=== PATIENT | female | born 1940 | race Caucasian/White ===

== ENCOUNTER → 2017-08-12 | Outpatient (CLI) | payer MEDICARE, OTHER ==
--- NOTE | 2017-08-12 10:14 | CARDIOVASCULAR REPORT ---
"Cerebrovascular Exam Indications: Follow-up carotid 433.10. IMPRESSIONS 1. Study suggests 50-69% stenosis involving the right internal carotid artery. Disease progression from the study of 23-Feb-2010. 2. Study suggests 50-69% stenosis involving the left internal carotid artery. No change from the study of 23-Feb-2010. History: Risk factors: Current tobacco use. Carotid duplex study. Complete study and Doppler flow study including spectral analysis, color and cabrera scale imaging. Height: Height: 154.9cm. Height: 61in. Weight: Weight: 68kg. Weight: 149.7lb. Body mass index: BMI: 28.3kg/m^2. Body surface area: BSA: 1.73m^2. Location: Vascular laboratory. Patient status: Outpatient. Tables: Arterial flow: + +--------+--------+ |Location |V sys |V ed | + +--------+--------+ |Right CCA - proximal|108cm/s |21.2cm/s| + +--------+--------+ |Right CCA - distal |113cm/s |25.1cm/s| + +--------+--------+ |Right ECA |350cm/s |--------| + +--------+--------+ |Right ICA - proximal|112cm/s |32.4cm/s| + +--------+--------+ |Right ICA - mid |204cm/s |50.3cm/s| + +--------+--------+ |Right ICA - distal |133cm/s |40.2cm/s| + +--------+--------+ |Right vertebral |38.4cm/s|--------| + +--------+--------+ |Left CCA - proximal |86.6cm/s|21cm/s | + +--------+--------+ |Left CCA - distal |95cm/s |26.5cm/s| + +--------+--------+ |Left ECA |266cm/s |--------| + +--------+--------+ |Left ICA - proximal |163cm/s |34.8cm/s| + +--------+--------+ |Left ICA - mid |163cm/s |39.3cm/s| + +--------+--------+ |Left ICA - distal |146cm/s |42.7cm/s| + +--------+--------+ |Left vertebral |44.8cm/s|--------| + +--------+--------+ Velocity ratios: + + + + + + | |Right, V sys|Right, V ed|Left, V sys|Left, V ed| + + + + + + |Max ICA/dist CCA|1.81 |2 |1.72 |1.61 | + + + + + + (Report amended ) Electronically signed by: Curtis Yeboah [id number]"
== END ==
LOC: RT 09:03
DX: R09.89 Other specified symptoms and signs involving the circulatory and respiratory systems (principal)